=== PATIENT | female | born 1980 | race Caucasian/White ===

== ENCOUNTER 2022-11-19 09:03 | Day surgery (SDC) | payer MEDICAID ==
[~2022-11-19] VITALS: Ht 167.6 cm; Wt 63.2 kg
[2022-11-19 09:17] VITALS: BP 112/69
[2022-11-19] MEDS ORDERED: MESA1.2T PO (09:37)
[2022-11-19] MEDS ORDERED: HUMALOG SQ (09:39)
[2022-11-19 11:27] VITALS: BP 133/68
== END 2022-11-19 11:35 | disposition home or self-care (01) ==
LOC: GI LAB 09:03
PROVIDERS: ATTEND Internal Medicine Gastroenterology
DX: K51.80 Other ulcerative colitis without complications (principal); E10.9 Type 1 diabetes mellitus without complications; Z96.41 Presence of insulin pump (external) (internal); Z79.899 Other long term (current) drug therapy
CPT/HCPCS: 45380; 99152; J7030; Z7512; 99153; A4620